=== PATIENT | male | born 1970 | race Caucasian/White ===

== ENCOUNTER 2025-03-20 16:02 | Emergency (ER) | payer BC ==
[~2025-03-20] VITALS: Ht 172.7 cm; Wt 90.7 kg
[2025-03-20] MEDS ORDERED: SIMVASTATIN5 MG (16:36)
[2025-03-20] MEDS ORDERED: METFORMIN HCL500 M3 PO (16:36)
[2025-03-20] MEDS ORDERED: LOSARTAN POTASS25 MG PO (16:36)
[2025-03-20] MEDS ORDERED: NASAL MIST126 ML (16:36)
[2025-03-20] MEDS ORDERED: JARDIANCE25 MG PO (16:36)
[2025-03-20] MEDS ORDERED: ONDANSETRON HCL 2 MG/ML VIAL IV ONE (17:00)
[2025-03-20] MEDS ORDERED: FAMOTIDINE/PF 20 MG/2 ML VIAL IV ONE (17:00)
[2025-03-20] MEDS ORDERED: RINGERS SOLUTION,LACTATED 1,000 ML IV ONE (17:00)
[2025-03-20] MEDS ORDERED: ONDANSETRON HCL 2 MG/ML VIAL ONE (17:10)
[2025-03-20] MEDS ORDERED: FAMOTIDINE/PF 20 MG/2 ML VIAL ONE (17:11)
[2025-03-20 17:34] LABS: BASO % 0.5 % (0.1-1.2); EOS # 0.02 (0.04-0.54); EOS % 0.1 % (0.7-7.0); LYMPH # 1.42 (1.18-3.74); LYMPH % 10.3 % (19.3-53.1); MEAN PLATELET VOLUME 11.30 fl (9.4-12.4); MONO # 0.83 (0.24-0.82); MONO % 6.0 % (4.7-12.5); NEUT # 11.41 (1.56-6.13); NEUT % 82.7 % (34.0-71.1); RED CELL DISTRIBUTION WIDTH 13.3 % (11.6-14.4)
[2025-03-20 18:01] LABS: ALT/SGPT 35.0 U/L (12-78); AST/SGOT 24.0 U/L (15-37); BILIRUBIN TOTAL 1.18 mg/dL (0.3-1.2); BUN CREA RATIO 21.0 (7.0-25.0); CREATININE SERUM 1.37 mg/dL (0.70-1.30); GFR 53.95; GLOBULINA 3.2 G/DL (2.4-3.5); GLUCOSE FASTING 148.0 mg/dL (65-100); OSMOLALITY SERUM 286.0 MOSM/KG (275-295)
[2025-03-20 18:04] LABS: URINE APPEARANCE Clear; URINE BILIRRUBIN Negative (NEGATIVE); URINE BLOOD Negative; URINE COLOR Yellow; URINE LEUKOCYTE Negative; URINE NITRATE Negative; URINE PROTEIN Trace (NEGATIVE); URINE UROBILINOGEN 0.2 E.U./dl
[2025-03-20 18:08] LABS: URINE BACTERIA 10.7 uL (0.0-1933); URINE EPITHELIAL CELLS 3.6 uL (0.0-38.8); URINE RBC 6.3 uL (0.0-20.8); URINE WBC 9.8 uL (0.0-23.2)
[2025-03-20 18:29] LABS: URINE CAST 0.00 uL (0.0-1.40); URINE GLUCOSE >=1000 MG/DL (NEGATIVE); URINE KETONE 40 (NEGATIVE)
[2025-03-20] MEDS ORDERED: BARIUM SULFATE 450 ML ORAL.SUSP PO ONE (20:54)
[2025-03-21] MEDS ORDERED: PEPCID40 MG PO (04:11)
[2025-03-21] MEDS ORDERED: ZOFRAN8 MG PO (04:11)
== END 2025-03-21 04:22 ==
LOC: ER 16:03
PROVIDERS: Student in an Organized Health Care Education/Training Program
DX: K52.89 Other specified noninfective gastroenteritis and colitis (principal); K57.32 Diverticulitis of large intestine without perforation or abscess without bleeding; E11.9 Type 2 diabetes mellitus without complications; Z79.84 Long term (current) use of oral hypoglycemic drugs
CPT/HCPCS: 36415; 74177; Q9965